=== PATIENT | male | born 1955 | race Caucasian/White ===

== ENCOUNTER 2019-05-03 08:44 | Outpatient (REF) | payer OTHER, SELFPAY ==
[2019-05-03 12:57] LABS: HCT 47.3 % (40.0-50.0); HGB 15.7 g/dL (13.5-17.5); Mean Corp. HGB Concentration 33.2 g/dL (32.0-36.0); Mean Corpuscular Hemoglobin 33.4 pg (27.0-33.0); Mean Corpuscular Volume 100.6 fL (80-95); Mean Platelet Volume 10.8 fL (8.0-11.0); Platelet Count 283 x1000/uL (130-400); RBC Distribution Width 13.3 % (11.8-14.1); White Blood Cell Count 5.44 k/cumm (4.4-10.8)
[2019-05-03 14:22] LABS: ALT 27 U/L (16-63); AST 21 U/L (15-37); Albumin 4.4 g/dL (3.4-5.0); Alkaline Phosphatase 62 U/L (46-116); Anion Gap 12.3 mmol/L (3-11); BUN 14 mg/dL (7-18); Bilirubin, Total 1.3 mg/dL (0.2-1.0); CO2 28.7 mmol/L (21.0-32.0); CREATININE 1.08 mg/dL (0.70-1.30); Calcium 9.8 mg/dL (8.5-10.1); Calculated LDL 222 mg/dL; Chloride 103 mmol/L (98-107); Cholesterol 298 mg/dL (<200); Glucose 100 mg/dL (74-106); HDL Cholesterol 54 mg/dL (40-60); Potassium 4.2 mmol/L (3.5-5.1); Sodium 144 mmol/L (136-145); Triglyceride 114 mg/dL (<150)
[2019-05-06 10:40] LABS: PSA, Screening 1.7 ng/mL (0.0-4.5)
== END 2019-05-03 09:04 ==
LOC: NCHCN 08:44
PROVIDERS: PCP Family Medicine; Visit Provider Family Medicine
DX: E78.5 Hyperlipidemia, unspecified (principal); Z12.5 Encounter for screening for malignant neoplasm of prostate
CPT/HCPCS: 80053; 80061; 84153; 85027

== ENCOUNTER 2019-10-31 09:46 | Outpatient (REF) | payer OTHER, SELFPAY ==
[2019-10-31 21:32] LABS: Calculated LDL 167 mg/dL (<100); Cholesterol 236 mg/dL (<200); Folate 17.1 ng/mL (8.6-20.0); HDL Cholesterol 49 mg/dL (40-60); Triglyceride 100 mg/dL (<150); Vitamin B12 211 pg/mL (193-986)
[2019-11-04 13:25] LABS: PSA, Screening 2.3 ng/mL (0.0-4.5)
== END 2019-10-31 10:06 ==
LOC: NCHCN 09:46
PROVIDERS: PCP Family Medicine; Visit Provider Family Medicine
DX: E78.5 Hyperlipidemia, unspecified (principal); Z12.5 Encounter for screening for malignant neoplasm of prostate
CPT/HCPCS: 80061; 84153; 82607; 82746

== ENCOUNTER 2020-02-05 09:28 | Outpatient (REF) | payer OTHER, SELFPAY ==
[2020-02-05 22:03] LABS: Calculated LDL 144 mg/dL (<100); Cholesterol 207 mg/dL (<200); HDL Cholesterol 48 mg/dL (40-60); Triglyceride 77 mg/dL (<150)
[2020-02-05 22:22] LABS: Creatine Kinase 126 U/L (39-308)
== END 2020-02-05 09:48 ==
LOC: NCHCN 09:28
PROVIDERS: PCP Family Medicine; Visit Provider Family Medicine
DX: E78.5 Hyperlipidemia, unspecified (principal)
CPT/HCPCS: 80061; 82550

== ENCOUNTER 2020-05-05 14:22 | Outpatient (REF) | payer OTHER, SELFPAY ==
[2020-05-05 13:58] LABS: Calculated LDL 136 mg/dL (<100); Cholesterol 207 mg/dL (<200); HDL Cholesterol 47 mg/dL (40-60); Triglyceride 121 mg/dL (<150)
[2020-05-05 14:20] LABS: Creatine Kinase 169 U/L (39-308)
== END 2020-05-05 14:42 ==
LOC: NCHCN 14:22
PROVIDERS: PCP Family Medicine; Visit Provider Family Medicine
DX: E78.5 Hyperlipidemia, unspecified
CPT/HCPCS: 80061; 82550

== ENCOUNTER 2020-11-12 09:54 | Outpatient (REF) | payer OTHER, SELFPAY ==
[2020-11-12 14:05] LABS: ALT 20 U/L (16-63); AST 14 U/L (15-37); Albumin 4.4 g/dL (3.4-5.0); Alkaline Phosphatase 60 U/L (46-116); Anion Gap 9.7 mmol/L (3-11); BUN 10 mg/dL (7-18); Bilirubin, Total 0.7 mg/dL (0.2-1.0); CO2 27.3 mmol/L (21.0-32.0); Calcium 9.9 mg/dL (8.5-10.1); Chloride 108 mmol/L (98-107); Glucose 109 mg/dL (74-106); Potassium 4.6 mmol/L (3.5-5.1); Sodium 145 mmol/L (136-145); Total Protein 7.7 g/dL (6.4-8.2)
[2020-11-13 22:16] LABS: Calculated LDL 187 mg/dL (<100); Cholesterol 249 mg/dL (<200); HDL Cholesterol 43 mg/dL (40-60); Triglyceride 96 mg/dL (<150)
== END 2020-11-12 09:55 | disposition home or self-care (01) ==
LOC: NCHCN 09:54
PROVIDERS: PCP Family Medicine; Visit Provider Family Medicine
DX: Z00.00 Encounter for general adult medical examination without abnormal findings (principal); E78.5 Hyperlipidemia, unspecified
CPT/HCPCS: 80053; 80061

== ENCOUNTER 2021-11-23 15:12 | Outpatient (REF) | payer MEDICARE, SELFPAY ==
[2021-11-23 15:32] LABS: ALT 20 U/L (16-63); AST 18 U/L (15-37); Albumin 4.5 g/dL (3.4-5.0); Alkaline Phosphatase 69 U/L (46-116); Anion Gap 10.5 mmol/L (3-11); BUN 15 mg/dL (7-18); Bilirubin, Total 1.3 mg/dL (0.2-1.0); CO2 26.5 mmol/L (21.0-32.0); Calcium 10.1 mg/dL (8.5-10.1); Chloride 105 mmol/L (98-107); Glucose 117 mg/dL (74-106); Potassium 4.4 mmol/L (3.5-5.1); Sodium 142 mmol/L (136-145)
[2021-11-23 18:46] LABS: Vitamin D 25 Total 45.6 ng/mL (30-100)
[2021-11-23 22:11] LABS: PSA, Screening 2.6 ng/mL (<=4.5)
== END 2021-11-23 15:13 | disposition home or self-care (01) ==
LOC: NCHCN 15:12
PROVIDERS: PCP Family Medicine; Visit Provider Family Medicine
DX: E78.5 Hyperlipidemia, unspecified (principal); Z00.00 Encounter for general adult medical examination without abnormal findings; Z12.5 Encounter for screening for malignant neoplasm of prostate
CPT/HCPCS: 80053; 82306; 84153

== ENCOUNTER → 2021-11-29 13:06 | Outpatient (CLI) | payer MEDICARE, SELFPAY ==
--- NOTE | 2021-11-29 | DI.RAD_ITS ---
Exam(s) XR HIP RT COMPLETE AP PELVIS EXAM: XR HIP RT COMPLETE AP PELVIS CLINICAL HISTORY: RIGHT HIP JOINT PAIN--M25.551 TECHNIQUE: COMPARISON: No exams were available for comparison FINDINGS: Two views were obtained. There is mild narrowing of the cartilaginous joint spaces of both hips. Sl ight subchondral sclerosis also appears to be present in the acetabula bilaterally with mild acetabul ar marginal osteophytes noted. No other bony or soft tissue abnormality seen. IMPRESSION: Mild DJD both hips. RADIATION DOSE DELIVERED: Total DLP
== END ==
PROVIDERS: PCP Family Medicine; Visit Provider Family Medicine
DX: M16.0 Bilateral primary osteoarthritis of hip (principal)
CPT/HCPCS: 73502

== ENCOUNTER 2021-12-15 09:03 | Outpatient (REF) | payer MEDICARE, SELFPAY ==
[2021-12-15 14:11] LABS: HCT 43.3 % (40.0-50.0); HGB 14.4 g/dL (13.5-17.5); MCH 32.6 pg (27.0-33.0); MCHC 33.3 % (32.0-36.0); MCV 98 fL (80-95); MPV 10.5 fL (8.0-11.0); Platelet Count 291 10^3/uL (130-400); RBC 4.42 10^6/uL (4.36-5.78); RDW 12.7 % (11.8-14.1); RDW-SD 45.7 fL; WBC 5.11 10^3/uL (4.4-10.8)
[2021-12-15 14:32] LABS: Calculated LDL 149 mg/dL (<100); Cholesterol 221 mg/dL (<200); HDL Cholesterol 43 mg/dL (40-60); TSH (W/Ref FT4) 0.62 uIU/mL (0.36-3.74); Triglyceride 147 mg/dL (<150)
[2021-12-23 16:57] LABS: Testosterone, Total 681 ng/dL (240-950)
== END 2021-12-15 09:04 | disposition home or self-care (01) ==
LOC: NCHCN 09:03
PROVIDERS: PCP Family Medicine; Visit Provider Family Medicine
DX: E78.5 Hyperlipidemia, unspecified (principal); R53.83 Other fatigue
CPT/HCPCS: 80061; 84402; 84403; 85027; 84443

== ENCOUNTER 2022-11-21 09:31 | Outpatient (CLI) | payer MEDICARE, SELFPAY ==
--- NOTE | 2022-11-21 09:15 | DI.RAD_ITS ---
Exam(s) XR KNEE LT 3V AP,LAT,JASIEL EXAM: XR KNEE LT 3V AP,LAT,JASIEL CLINICAL HISTORY: left knee pain. TECHNIQUE: 2D digital imaging was performed of the left knee. Three images were obtained. AP, late ral and PA tunnel views were obtained. COMPARISON: No exams were available for comparison FINDINGS: BONES: No acute fracture is present. No bony destructive lesion is seen. JOINTS: There is mild narrowing of the medial femoral tibial joint. No joint effusion is seen. SOFT TISSUE: Normal. IMPRESSION: Mild joint space narrowing in the medial femoral tibial joint. DATA REPOSITORY: RADIATION DOSE DELIVERED:
== END 2022-11-21 09:32 | disposition home or self-care (01) ==
LOC: DIORS 09:32
PROVIDERS: PCP Family Medicine; Referring Provider Family Medicine; Visit Provider Physician Assistant
DX: M25.562 Pain in left knee (principal); M17.12 Unilateral primary osteoarthritis, left knee
CPT/HCPCS: 20610; 73562; 99203; J1040

== ENCOUNTER 2023-01-24 16:05 | Outpatient (REF) | payer MEDICARE, SELFPAY ==
[2023-01-24 15:06] LABS: ALT 20 U/L (16-63); AST 14 U/L (15-37); Albumin 4.4 g/dL (3.4-5.0); Alkaline Phosphatase 84 U/L (46-116); Anion Gap 7.2 mmol/L (3-11); BUN 12 mg/dL (7-18); CO2 29.8 mmol/L (21.0-32.0); Calcium 9.7 mg/dL (8.5-10.1); Calculated LDL 107 mg/dL (<100); Chloride 105 mmol/L (98-107); Cholesterol 173 mg/dL (<200); Estimated GFR 83.01 (mL/min/1.73m2); Glucose 109 mg/dL (74-106); HDL Cholesterol 51 mg/dL (40-60); Potassium 4.8 mmol/L (3.5-5.1); Sodium 142 mmol/L (136-145); Total Protein 7.7 g/dL (6.4-8.2); Triglyceride 76 mg/dL (<150)
[2023-01-24 15:22] LABS: Vitamin D 25 Total 46.6 ng/mL (30-100)
[2023-01-25 09:54] LABS: PSA, Screening 2.2 ng/mL (<=4.5)
== END 2023-01-24 16:06 | disposition home or self-care (01) ==
LOC: NCHCN 16:05
PROVIDERS: PCP Family Medicine; Visit Provider Family Medicine
DX: E78.5 Hyperlipidemia, unspecified (principal); R53.83 Other fatigue; N40.0 Benign prostatic hyperplasia without lower urinary tract symptoms; Z12.5 Encounter for screening for malignant neoplasm of prostate; Z79.899 Other long term (current) drug therapy
CPT/HCPCS: 80053; 80061; 82306; 84153

== ENCOUNTER 2023-02-13 15:28 | Outpatient (CLI) | payer MEDICARE, SELFPAY ==
--- NOTE | 2023-02-13 14:30 | DI.RAD_ITS ---
Exam(s) XR HIP RT COMPLETE AP PELVIS EXAM: XR HIP RT COMPLETE AP PELVIS CLINICAL HISTORY: right hip pain. TECHNIQUE: 2D digital imaging was performed of the right hip. Two images were obtained. AP pelvis a nd lateral right hip views were obtained. COMPARISON: CR XR HIP RT COMPLETE AP PELVIS from 11/29/2021 FINDINGS: BONES: No acute fracture is present. No bony destructive lesion is seen. JOINTS: No dislocation present. In the hips there is mild joint space narrowing, left greater than ri ght. Subchondral cysts are seen bilaterally in the acetabuli. There is mild spurring of the left ac etabulum. The sacroiliac joints and symphysis pubis are unremarkable. SOFT TISSUE: Normal. IMPRESSION: Degenerative changes of the hips, left greater than right. DATA REPOSITORY: RADIATION DOSE DELIVERED:
== END 2023-02-13 15:29 | disposition home or self-care (01) ==
LOC: DIORS 15:29
PROVIDERS: PCP Family Medicine; Referring Provider Family Medicine; Visit Provider Student in an Organized Health Care Education/Training Program
DX: M25.851 Other specified joint disorders, right hip
CPT/HCPCS: 99213; 73502

== ENCOUNTER 2023-04-04 14:56 | Outpatient (CLI) | payer MEDICARE, SELFPAY ==
--- NOTE | 2023-04-04 10:09 | DI.RAD_ITS ---
Exam(s) XR SHOULDER LT COMPLETE 2+V EXAM: XR SHOULDER LT COMPLETE 2+V CLINICAL HISTORY: LEFT SHOULER PAIN. TECHNIQUE: 2D digital imaging was performed. Two views. COMPARISON: No exams were available for comparison FINDINGS: BONES: No acute fracture is present. No bony destructive lesion is seen. JOINTS: No dislocation present. No significant AC joint spurring. Mild narrowing of the glenohumera l joint. Spurring at the inferior glenoid and humeral head. SOFT TISSUE: Normal. IMPRESSION: [id number] degenerative changes of the glenohumeral joint. DATA REPOSITORY: RADIATION DOSE DELIVERED:
== END 2023-04-04 14:57 | disposition home or self-care (01) ==
LOC: DIORS 14:56
PROVIDERS: PCP Family Medicine; Referring Provider Family Medicine; Visit Provider Student in an Organized Health Care Education/Training Program
DX: M25.512 Pain in left shoulder (principal); M19.012 Primary osteoarthritis, left shoulder
CPT/HCPCS: 99213; 73030

== ENCOUNTER 2023-05-25 14:42 | Emergency (ER) | payer MEDICARE, SELFPAY ==
[2023-05-25 14:44] VITALS: BP 152/104; PULSE 93; RESP 18; TEMP 36.3; O2SAT 99
--- NOTE | 2023-05-25 14:57 | ED.GENADUL_ITS ---
HPI General Date/Time Provider Initiated Documentation: 05/25/23 14:45 . HPI Narrative: 67-year-old male history of prior allergic reaction to bee sting presents after being stung by a wasp on his left pinky finger approximately 1 hour ago, localized discomfort swelling and itchiness, took Benadryl before arrival, no nausea no vomiting no throat swelling no tongue swelling no change in speech no trouble breathing. No lightheadedness. Related Data Home Medications Medication Instructions Recorded Confirmed epinephrine 0.3 mg/0.3 mL 0.3 mg (0.3 mL) IJ STAT PRN 11/13/15 05/25/23 injection, auto-injector (EpiPen Anaphylaxis #1 unit 2-Hi) cholecalciferol (vitamin D3) 50 2,000 unit PO DAILY 05/03/17 05/25/23 mcg (2,000 unit) capsule (Vitamin D3) famotidine 10 mg tablet (Pepcid AC) 10 mg PO DAILY 05/03/17 05/25/23 vardenafil 10 mg tablet (Levitra) 10 mg PO PRN 05/03/17 05/25/23 Tumeric 1 tab PO DAILY 05/23/17 05/25/23 ibuprofen 200 mg capsule 400 mg PO PRN PRN 05/23/17 05/25/23 red yeast rice 600 mg capsule 600 mg PO DAILY 05/23/17 05/25/23 rosuvastatin 10 mg tablet 10 mg PO DAILY 04/04/23 05/25/23 Previous Rx's Medication Instructions Recorded epinephrine 0.3 mg/0.3 mL 0.3 mg (0.3 mL) IJ STAT PRN 11/13/15 injection, auto-injector (EpiPen Anaphylaxis #1 unit 2-Hi) Allergies Allergy/AdvReac Type Severity Reaction Status Date / Time bee venom protein (honey bee) Allergy Severe Anaphylaxsi Unverified 05/25/23 14:48 s General Stated Complaint: Allergic GIRMA: 3 Review of Systems Narrative: Review of Systems Constitutional: negative Eyes: negative ENT: negative Cardiovascular: negative Respiratory: negative Gastrointestinal: negative : negative Musculoskeletal: Finger pain and swelling itchiness Skin: negative Neurologic: negative Psych: negative Exam Narrative Exam Narrative: Physical Examination General: alert, awake, cooperative, resting comfortably, no acute distress HEENT: normocephalic, atraumatic; PERRL, EOM intact, conjunctiva normal; no nasal discharge; moist mucous membranes, oral and pharyngeal mucosa normal, tolerating secretions; normal voice no stridor Neck: supple, trachea midline; full ROM Chest: normal to inspection Respiratory: normal respiratory effort, speaking in full sentences, clear to auscultation, no wheezing, rales or rhonchi; normal voice no stridor Cardiac: regular rate, regular rhythm, S1S2 intact, no murmurs rubs or gallops GI: abdomen soft, non-tender, non-distended; no palpable mass or hepatosplenomegaly Skin: Induration erythema urticaria to left fifth digit of upper hand as well as dorsum of left hand Neuro: AAOx3, normal speech, moving all extremities Extremities: See skin; flexion extension of all digits intact; neurovascular exam of left upper extremity intact Psych: Appropriate mood and affect Course Vital Signs Vital signs: Vital Signs Temperature 36.3 C L 05/25/23 14:44 Pulse 93 H 05/25/23 14:44 Respiratory Rate 18 05/25/23 14:44 Blood Pressure 152/104 H 05/25/23 14:44 Pulse Oximetry 99 05/25/23 14:44 Temperature 36.3 C L 05/25/23 14:44 Pulse 93 H 05/25/23 14:44 Respiratory Rate 18 05/25/23 14:44 Respiratory Effort Non-Labored 05/25/23 14:50 Respiratory Pattern Normal 05/25/23 14:50 Blood Pressure 152/104 H 05/25/23 14:44 Blood Pressure Position Sitting 05/25/23 14:44 Pulse Oximetry 99 05/25/23 14:44 Oxygen Delivery Method Room Air 05/25/23 14:44 Oxygen Flow Rate 0 05/25/23 14:44 Medical Decision Making 67-year-old male presents 1 hour after being stung by wasp on the fifth digit of his left upper extremity, localized induration erythema and urticaria involving digit and dorsum of hand, no nausea vomiting shortness of breath facial swelling tongue swelling lightheadedness or other systemic symptoms noted. Patient resting comfortably no acute distress lungs clear bilaterally tongue secretions normal voice. Hypertension tachycardia likely related to discomfort. Patient took diphenhydramine 25 mg before arrival. Will dose dexamethasone and cetirizine p.o. Will observe for any worsening symptoms. Likely localized allergic reaction will observe for any signs of developing anaphylaxis. Likely home with close follow-up. Patient has access to EpiPen 15: 11 patient asking to leave. 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 (Acute) Mild medially 80 mg Depo-medrol: 11/21/22 Medical History (Updated 05/25/23 @ 15:13 by Toy Dias MD) Hyperlipidemia Marijuana use Erectile dysfunction Reflux esophagitis Surgical History (Updated 02/14/18 @ 14:37 by [employer] MS) Repair of inguinal hernia EGD - MAC (05/26/17) Colonoscopy - MAC (05/26/17) Social History Smoking/Tobacco Use Status: Never Smoking risk assessment performed?: Yes Drug use: Occasionally Do you feel safe at home: Yes Do you feel safe in your relationship?: Yes Discharge Plan Disposition Patient Disposition: Home Condition: Stable Discharge Details Chief Complaint: Allergic Clinical Impression: Wasp sting Primary Care Provider: Molly Soliman ED Provider: Toy Dias Home Meds and New Rx's Prescriptions: No Action rosuvastatin 10 mg tablet 10 mg PO DAILY famotidine [Pepcid AC] 10 MG tablet 10 mg PO DAILY vardenafil [Levitra] 10 MG tablet 10 mg PO PRN cholecalciferol (vitamin D3) [Vitamin D3] 2,000 UNIT capsule 2,000 unit PO DAILY epinephrine [EpiPen 2-Hi] 0.3 MG/0.3 ML auto-injector 0.3 mg IJ STAT PRN (Reason: Anaphylaxis) Qty: 1 0RF ibuprofen 200 MG capsule 400 mg PO PRN PRN red yeast rice 600 MG capsule 600 mg PO DAILY Tumeric 1 tab PO DAILY Discharge Instructions Instructions: Insect Bite or Sting (ED), Anaphylaxis (ED), General Allergic Reaction (ED) Additional Instructions: Please return to the emergency department for any worsening symptoms such as but not limited to trouble breathing trouble speaking trouble swallowing, nausea vomiting feeling lightheaded or passing out or other abnormal symptoms. Please use your EpiPen if you develop signs of severe allergic reaction/anaphylaxis.
[2023-05-25] MEDS: Cetirizine 10 MG TAB PO (15:06)
[2023-05-25] MEDS: Dexamethasone 10 MG/ML VIAL PO (15:06)
== END 2023-05-25 15:18 | disposition home or self-care (01) ==
PROVIDERS: Emergency Provider Emergency Medicine; PCP Family Medicine
DX: T63.441A Toxic effect of venom of bees, accidental (unintentional), initial encounter (principal); Y92.89 Other specified places as the place of occurrence of the external cause
CPT/HCPCS: 99283; J1100

== ENCOUNTER → 2023-07-21 10:28 | Outpatient (BNVA) | payer MEDICARE, SELFPAY | PROVIDERS: PCP Family Medicine; Referring Provider Family Medicine | DX: M17.12 Unilateral primary osteoarthritis, left knee (principal) | CPT/HCPCS: 20610; J1040 ==

== ENCOUNTER → 2023-10-24 10:08 | Outpatient (BNVA) | payer MEDICARE, SELFPAY | PROVIDERS: PCP Family Medicine; Referring Provider Family Medicine; Visit Provider Surgery | DX: K46.9 Unspecified abdominal hernia without obstruction or gangrene (principal) | CPT/HCPCS: 99213 ==

== ENCOUNTER 2023-11-01 06:23 | Day surgery (SDC) | payer MEDICARE, SELFPAY ==
--- NOTE | 2023-10-31 14:21 | W.PM.DSUDISC ---
Date of service: 11/01/23 Time of Service: 08:26 Discharge Plan Disposition Patient Disposition: Home Condition: Good Discharge Details Reason For Visit: Right inguinal hernia repair with mesh Attending Provider: Kris Arreola Primary Care Provider: Molly Soliman Home Meds and New Rx's Prescriptions: New tramadol 50 mg tablet 50 mg PO Q8H PRNQty: 15 0RF Rx Instructions: Take 1 tablet by mouth if needed for more severe pain. Do not drive while using this medication. Tablets can be broken in half for smaller doses if needed. Continued famotidine [Pepcid AC] 10 MG tablet 10 mg PO DAILY vardenafil [Levitra] 10 MG tablet 10 mg PO PRN cholecalciferol (vitamin D3) [Vitamin D3] 2,000 UNIT capsule 2,000 unit PO DAILY epinephrine [EpiPen 2-Hi] 0.3 MG/0.3 ML auto-injector 0.3 mg IJ STAT PRN (Reason: Anaphylaxis) Qty: 1 0RF ibuprofen 200 MG capsule 400 mg PO PRN PRN red yeast rice 600 MG capsule 600 mg PO DAILY Discharge Instructions Instructions: Groin Hernia Repair, Open Surgery Additional Instructions: Sameer, we were able to repair your hernia today just like we talked about in the office. Everything went very smoothly, and hopefully this will give you good protection for many years to come. As we talked about beforehand, expect to have some pain in the area after surgery. I did prescribe medication called tramadol, which you should use if needed in combination with Tylenol and ibuprofen. Ice packs over the area are often times quite helpful as well. Will probably get quite a bit of bruising in the area, which is generally nothing to worry about. So do not be alarmed if you notice that. Keep your lifting less than 10 pounds for the next week or 2, we will see how you are feeling in the office before we decide on resuming her regular activities. If he notices skin turning red, increasing pain, or any thick and white discharge from the incision, please let me know. Otherwise, I look forward to seeing you in the office. If you have any questions at all do not hesitate to call. 1. Resume all of your regular medications. 2. Alternate heating pads and ice packs as needed for pain. 3. Alternate [id number] Tylenol and ibuprofen every 6 hours for the first 2 days. Then use as needed. Use the prescription for tramadol if needed for more severe pain. 4. Leave bandage in place for 24 hours, then remove. 5. Shower with warm soapy water. Pat dry. Use a bandaid if needed to protect your clothing. 6. No soaking or tub baths until I see you in the office. 7. No heavy lifting until I see you in the office. 8. Call the office (or go directly to the emergency room after hours) if you notice any of the following: Develop chills (warm to touch), or if you have a thermometer and your temperature is above 101 Difficulty breathing or difficultly swallowing Persistent vomiting Any bleeding ? exceeding one tablespoon 9. Call your physician if the site where your intravenous was started becomes red, swollen, painful, and warm to touch. Referrals: Kris Arreola MD [ [facility] STAFF PHYSICIAN] - Activity:: No heavy lifting Remove Dressings/Wound Care:: 24 hours Shower/Bathe:: 24 hours Diet:: As Tolerated Discharge Orders Discharge Orders: Discharge Order (Routine); Ordered 10/31/23 Ordered By: Kris Arreola DS: Diagnosis Discharge Diagnosis (1) Right inguinal hernia: Status: Acute Asessment and Plan: Status post right open inguinal hernia repair with mesh. Routine postoperative follow-up
--- NOTE | 2023-10-31 14:23 | ROE_ITS ---
Date of service: 11/01/23 Time of Service: 08:29 Operative Note Operative Note DATE OF PROCEDURE: 10/31/23 PRE-OP DIAGNOSIS: Right inguinal hernia POST-OP DIAGNOSIS: other (Right-sided direct inguinal hernia) PROCEDURE: Open right inguinal hernia repair with mesh SURGEON: Kris Arreola [employer] WORK[employer]: Nakia Velazquez ANESTHESIA TYPE: Local By Surgeon and General LMA/ETT Refer to Anesthesia Record ESTIMATED BLOOD LOSS: 10 PATHOLOGY: none sent COMPLICATIONS: None Patient was transported to: PACU Patient's condition: stable Implants: Bard mesh Indications: Sameer is a 68-year-old male with a symptomatic right-sided hernia Findings: Right-sided direct inguinal hernia Procedure Description: I began by confirming the correct site with the patient. He was then brought to the OR, moved onto the operating room table. General endotracheal anesthesia was induced. The surgical site was then prepped and draped in the usual fashion. I established a generous field block using local anesthetic with Exparel. I began by making an oblique incision over the right inguinal region. I dissected down through the skin to the deep fascia. Next, I incised the fascia along the length of the inguinal canal to the external ring. I then carefully identified the ilioinguinal nerve and sharply divided. Once this was complete, I bluntly dissected the shelving edge of the inguinal ligament down towards the pubic tubercle. Here, I encircled all cord structures with a [place] drain. Next, I began dissecting the specific cord structures. Great care was taken to spare the vas deferens and the blood supply to the testicle. I gently dissected the cord structures, and elevated them off of the posterior wall. It was immediately evident that this was a direct inguinal hernia. The cord was carefully examined back to its origin at the internal ring. There was no sign of any indirect inguinal hernia. Next, I tailored a large Bard mesh to reconstruct the posterior wall of the inguinal canal. It was affixed to the pubic tubercle, and the conjoined tendon. Running Prolene suture was used to attach it up along the conjoined tendon and around to the internal oblique aponeurosis. A keyhole defect was created in the mesh to support the [place] internal ring. The inferior margin was then secured along the shelving edge of the inguinal ligament back to the lateral reflection. The tails of the mesh were affixed lateral to the internal ring. The cord was then laid back down into its normal anatomic position. The field was hemostatic. I then closed the anterior portion of the fascia to reconstruct the front wall of the inguinal canal with running Vicryl suture. More local anesthetic was administered. Once again, I irrigated the surgical field and inspected for hemostasis. Finally, I approximated the superficial fascia and the deep layers of the skin with absorbable suture. Skin was closed with running subcuticular stitches. bandages were applied, the patient was awakened and transferred to the recovery unit.
--- NOTE | 2023-10-31 19:09 | W.ANESPRE ---
General Info Date of Service Date Performed: 11/01/23 Height: 5 ft 8 in Weight: 75 kg Body Mass Index (BMI): 25.1 Surgical Procedure: Operation Date: 11/01/23 07:40 Proposed Procedure Side Surgeon p Herniorrhaphy Inguinal w/Mesh Right Kris Arreola MD Meds Allergies and Home Medications Allergies Allergy/AdvReac Type Severity Reaction Status Date / Time bee venom protein (honey bee) Allergy Severe Anaphylaxsi Unverified 11/01/23 06:27 s Home Medication Medication Instructions Recorded epinephrine 0.3 mg/0.3 mL 0.3 mg (0.3 mL) IJ STAT PRN 11/13/15 injection, auto-injector (EpiPen Anaphylaxis #1 unit 2-Hi) cholecalciferol (vitamin D3) 50 2,000 unit PO DAILY 05/03/17 mcg (2,000 unit) capsule (Vitamin D3) famotidine 10 mg tablet (Pepcid AC) 10 mg PO DAILY 05/03/17 vardenafil 10 mg tablet (Levitra) 10 mg PO PRN 05/03/17 ibuprofen 200 mg capsule 400 mg PO PRN PRN 05/23/17 red yeast rice 600 mg capsule 600 mg PO DAILY 05/23/17 Current Visit Medications: Current Medications Generic Name Dose Route Start Last Admin Trade Name Freq PRN Reason Stop Dose Admin Acetaminophen 1,000 mg 11/01/23 06:00 Acetaminophen 500 Mg Tab PO 11/01/23 16:00 PREOP JOHN Celecoxib 200 mg 11/01/23 06:00 Celecoxib 200 Mg Cap PO 11/01/23 16:00 PREOP JOHN Gabapentin 600 mg 11/01/23 06:00 Gabapentin 300 Mg Cap PO 11/01/23 16:00 PREOP JOHN Ringer's Solution 1,000 mls @ 80 mls/hr 11/01/23 06:00 IV 11/30/23 23:59 INFUSION JOHN Cefazolin Sodium/Dextrose 2 gm in 50 mls @ 100 mls/hr 11/01/23 06:00 Ancef Duplex IVPB 11/01/23 16:00 PREOP JOHN IV Miscellaneous Supplies 1 each 11/01/23 06:00 Iv Access IV 11/30/23 23:59 DIRECTED JOHN Sodium Chloride 0 ml 11/01/23 06:00 Normal Saline Flush 10 Ml Syr IV 11/30/23 23:59 PRN PRN Sodium Chloride 0 ml 11/01/23 06:00 Normal Saline 10 Ml Vial IJ 11/30/23 23:59 DIRECTED PRN Sterile Water 0 ml 11/01/23 06:00 Water,Injection,Sterile 10 Ml Vial IJ 11/30/23 23:59 DIRECTED PRN Tramadol HCl 50 mg 10/31/23 14:25 Tramadol 50 Mg Tab PO 11/30/23 14:24 Q6H PRN PRN Pain PFSH Active Problems Active Problems: Problem Status Onset Code Right inguinal hernia K40.90 Arthritis of left glenohumeral joint M19.012 Femoroacetabular impingement of right hip M25.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 M17.12 Medical History Medical History BPH (benign prostatic hyperplasia) Hyperlipidemia Marijuana use Erectile dysfunction Reflux esophagitis Surgical History Surgical History Repair of inguinal hernia variceal repair EGD - MAC (05/26/17) Colonoscopy - MAC (05/26/17) Tobacco Smoking/Tobacco Use Status: Never Alcohol Alcohol Intake: never Substance Use Substance use: Occasionally Substance use type: marijuana Vital Signs and Lab Results Vital Signs Most Recent Vital Signs in EMR: Temp Pulse Resp BP Pulse Ox 36.5 C 73 18 117/67 100 11/01/23 06:39 11/01/23 06:39 11/01/23 06:39 11/01/23 06:39 11/01/23 06:39 Lab Results Blood Type / Crossmatch: No Data to Display Complete Blood Count: No Data to Display Complete Metabolic Panel: No Data to Display Liver Function Panel: No Data to Display Coagulation Panel: No Data to Display Cardiac Panel: No Data to Display Arterial Blood Gas: No Data to Display Venous Blood Gas: No Data to Display Pancreas Panel: No Data to Display Thyroid Panel: No Data to Display Infectious Disease: No Data to Display Blood Cultures: No Data to Display Toxicology Panel: No Data to Display Anesthesia Assessment and Plan Anesthesia History Personal History: No History of Anesthesia Complications Family History: No Family History of Anesthesia Complications Exercise Tolerance Exercise Tolerance: Metabolic Equivalents>4 Cardiac & Pulmonary Exam Cardiac Exam: Normal S1/S2 Heart Sounds Pulmonary Exam: Clear Bilateral Breath Sounds Implantable Cardiac Device Does patient have a Pacemaker or an ICD?: No Airway Exam Known Difficult Airway: No Mallampati Class: 3 Mouth Opening: Normal (> 3cm) Thyromental Distance: Greater than 3 cm Neck Range of Motion: Full ROM Neck Circumference: Normal Teeth Condition: Normal Dentition ASA Classification ASA Score: ASA 2 Emergency Case?: No NPO Status NPO Status: NPO Clears >2 hours, Solids >8 hours Anesthesia Plan Resuscitation Status: Full Code Anesthesia Technique: General Anesthesia Airway Planned: LMA Pain Management: Surgeon and patient request nerve block Monitors Used: Standard Monitors Preoperative Comments:: 68 yo male for inguinal hernia repair. Sig PMHx: GERD (well controlled on Pepcid), BPH, never smoker, occ cannabis. discussed risks and benefits of regional anesthesia, he would like to no have a block.
[2023-11-01] VITALS (23 sets, daily range): BP systolic 86–123; BP diastolic 49–67; PULSE 57–73; RESP 14–19; TEMP 36–36.5; O2SAT 96–100; BMI 25.1
[2023-11-01] MEDS: Gabapentin 300 MG CAP 600 MG PO (06:44)
[2023-11-01] MEDS: Acetaminophen 500 MG TAB 1000 MG PO (06:44)
[2023-11-01] MEDS: Celecoxib 200 MG CAP PO (06:44)
[2023-11-01] MEDS: Lactated Ringers 1,000 ML 80 ML IV (07:06)
[2023-11-01] MEDS: ceFAZolin 2 GM/50 ML BAG IVPB (07:30)
[2023-11-01] MEDS: Bupivacaine LIPOSOME/PF 133 MG/10 ML VIAL IJ (07:56)
[2023-11-01] MEDS: Bupivacaine 0.5% Pres-Free W/EPI 30 ML VIAL (07:56)
--- NOTE | 2023-11-01 08:59 | W.ANESPOSTOP ---
Postoperative Evaluation Date, Time and Location Date Performed: 11/01/23 Time Performed: 08:59 Patient Location: PACU Vital Signs Most Recent Imported Vital Signs: Most Recent Vital Signs Temp Pulse Resp BP Pulse Ox 36.4 C L 65 15 100/54 L 97 11/01/23 08:49 11/01/23 08:46 11/01/23 08:46 11/01/23 08:46 11/01/23 08:46 Pain Score Most Recent Pain Score: Most Recent Pain Score Pain Level 0 11/01/23 08:49 Assessment Mental Status: Awake (Alert & Oriented to Patient Baseline) Airway and Respiratory Function: Patent airway with normal (patient baseline) respiratory exam Cardiovascular Function: Hemodynamically Stable Hydration Status: Adequately Hydrated Nausea & Vomiting: No Nausea or Vomiting Pain: Pain is tolerable per patient Peripheral Nerve Block: Patient did not receive a nerve block
[2023-11-01] MEDS: fentaNYL 100 MCG/2 ML VIAL IVP (09:09)
[2023-11-01] MEDS: HYDROcodone 10/Acetaminophen 325 TAB PO (10:23)
== END 2023-11-01 10:50 | disposition home or self-care (01) ==
LOC: SUR 06:23
PROVIDERS: PCP Family Medicine; Visit Provider Surgery
PROC: (CPT 49505; principal; 2023-11-01 07:30)
DX: K40.90 Unilateral inguinal hernia, without obstruction or gangrene, not specified as recurrent (principal); K21.9 Gastro-esophageal reflux disease without esophagitis
CPT/HCPCS: 49505; C1781; C9290; J0171; J0665; J0690; J1100; J1885; J2405; J2704; J3010; J3490

== ENCOUNTER → 2023-11-14 08:42 | Outpatient (BNVA) | payer MEDICARE, SELFPAY | PROVIDERS: PCP Family Medicine; Referring Provider Family Medicine; Visit Provider Surgery | DX: Z48.817 Encounter for surgical aftercare following surgery on the skin and subcutaneous tissue (principal) ==

== ENCOUNTER 2024-12-02 12:40 | Emergency (ER) | payer MEDICARE, SELFPAY ==
[2024-12-02] VITALS (63 sets, daily range): BP systolic 65–153; BP diastolic 31–83; PULSE 40–90; RESP 11–31; TEMP 36.6; O2SAT 94–98
--- NOTE | 2024-12-02 13:03 | W.ED.GENAD ---
Discharge Plan Disposition Patient Disposition: Home Condition: Stable Discharge Details Clinical Impression: Anaphylactic reaction to bee sting Primary Care Provider: Molly Soliman ED Provider: Belle Hancock Home Meds and New Rx's Prescriptions: New prednisone 50 mg tablet 50 mg PO DAILY Qty: 5 0RF famotidine [Pepcid] 40 mg tablet 40 mg PO DAILY Qty: 5 0RF No Action famotidine [Pepcid AC] 10 MG tablet 10 mg PO DAILY vardenafil [Levitra] 10 MG tablet 10 mg PO PRN cholecalciferol (vitamin D3) [Vitamin D3] 2,000 UNIT capsule 2,000 unit PO DAILY epinephrine [EpiPen 2-Hi] 0.3 MG/0.3 ML auto-injector 0.3 mg IJ STAT PRN (Reason: Anaphylaxis) Qty: 1 0RF hydrocodone-acetaminophen 10-325 mg tablet 1 tab PO BID PRNQty: 12 0RF ibuprofen 200 MG capsule 400 mg PO PRN PRN red yeast rice 600 MG capsule 600 mg PO DAILY Discharge Instructions Instructions: How to use an epinephrine autoinjector, Insect Bites and Stings ED, Anaphylaxis - Discharge instructions Additional Instructions: Continue taking Benadryl, Pepcid, and steroid for the next 5 days. If you have any symptoms that return involving tongue swelling, throat closing up, change in your voice please take the epinephrine and come back to the emergency department. Discharge Data Discharge Physician: Belle Hancock [facility] General Date/Time Provider Initiated Documentation: 12/02/24 12:59. HPI Narrative: 69-year-old male presents for evaluation after bee sting. 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 He does carry an EpiPen however he did not take it. Around noon he was stung multiple times in his left forearm. He had significant erythema to the area. He diddevelop hives and itching. He had some swelling of his upper lip. No tongue swelling or difficulty breathing. He took 25 mg of Benadryl prior to arrival. At time my evaluation his lip swelling has improved. No tongue swelling. No difficulty breathing. No tight throat. He is not feeling very itchy anymore. He does have significant swelling to his left forearm still. Related Data Home Medications ?Medication ?Instructions ?Recorded ?Confirmed epinephrine 0.3 mg/0.3 mL 0.3 mg (0.3 mL) IJ STAT PRN 11/13/15 12/02/24 injection, auto-injector (EpiPen Anaphylaxis #1 unit 2-Hi) cholecalciferol (vitamin D3) 50 2,000 unit PO DAILY 05/03/17 12/02/24 mcg (2,000 unit) capsule (Vitamin D3) famotidine 10 mg tablet (Pepcid AC) 10 mg PO DAILY 05/03/17 12/02/24 vardenafil 10 mg tablet (Levitra) 10 mg PO PRN 05/03/17 12/02/24 ibuprofen 200 mg capsule 400 mg PO PRN PRN 05/23/17 12/02/24 red yeast rice 600 mg capsule 600 mg PO DAILY 05/23/17 12/02/24 hydrocodone 10 mg-acetaminophen 1 tab PO BID PRN #12 tabs 11/01/23 12/02/24 325 mg tablet famotidine 40 mg tablet (Pepcid) 40 mg PO DAILY #5 tabs 12/02/24 prednisone 50 mg tablet 50 mg PO DAILY #5 tabs 12/02/24 Previous Rx's ?Medication ?Instructions ?Recorded epinephrine 0.3 mg/0.3 mL 0.3 mg (0.3 mL) IJ STAT PRN 11/13/15 injection, auto-injector (EpiPen Anaphylaxis #1 unit 2-Hi) hydrocodone 10 mg-acetaminophen 1 tab PO BID PRN #12 tabs 11/01/23 325 mg tablet famotidine 40 mg tablet (Pepcid) 40 mg PO DAILY #5 tabs 12/02/24 prednisone 50 mg tablet 50 mg PO DAILY #5 tabs 12/02/24 Allergies Allergy/AdvReac Type Severity Reaction Status Date / Time bee venom protein (honey bee) Allergy Severe Anaphylaxsi Unverified 11/14/23 08:47 s General Stated Complaint: Allergic GIRMA: 2 Review of Systems Narrative: Remainder of review of systems otherwise negative except for as noted in the HPI x 10. Exam Narrative Exam Narrative: General: non-toxic, no respiratory distress, comfortable HEENT: normocephalic, atraumatic, lids and lashes normal, PERRL, EOMI, anicteric sclera, no conjunctival injection, mild swelling left lateral upper lip, moist oral mucosa, no pharyngeal exudate, uvula midline Card: regular rate and rhythm, S1S2, no murmurs, rubs, or gallops Lungs: good air entry, clear to auscultation bilaterally. no wheezes, rales, rhonchi, or retractions Abd: soft, non-tender, non-distended, normal bowel sounds, no rebound or guarding, no peritoneal signs Musculoskeletal: Erythema and swelling to left forearm with 2 visible bite starr, full range of motion of arms and legs, no tenderness to palpation. no clubbing, cyanosis, or edema Neurologic: appropriate for age, strength normal Psych: alert and oriented Skin: Diffuse hives, as above, otherwise no petechiae, no lesions, warm and dry Course Reevaluation(s) Reevaluation: 1340. Patient was reassessed. He feels better however on exam he does have swelling of his tongue and he does feel like it is a little bit harder to swallow. He will be given epinephrine. Reevaluation #2: 1400 -tongue swelling improving Additional Reevaluation(s): 1530-patient continues to improve. Vital Signs Vital signs: Vital Signs Temperature 36.6 C 12/02/24 12:45 Pulse 90 12/02/24 12:45 Respiratory Rate 16 12/02/24 12:45 Blood Pressure 153/75 H 12/02/24 12:45 Pulse Oximetry 95 12/02/24 12:45 Temperature 36.6 C 12/02/24 12:45 Temperature Source Oral 12/02/24 12:45 Pulse 90 12/02/24 12:45 Respiratory Rate 16 12/02/24 12:45 Blood Pressure 153/75 H 12/02/24 12:45 Pulse Oximetry 95 12/02/24 12:45 Oxygen Delivery Method Room Air 12/02/24 12:45 Oxygen Flow Rate 0 12/02/24 12:45 Pain Level 0 12/02/24 12:45 Medical Decision Making 69-year-old male presents for evaluation after bee stings. Patient did take Benadryl prior to arrival with improvement of symptoms. Will hold on epinephrine at this time. Patient will be treated with IV Benadryl, IV Pepcid and IV steroid. At time of my first reassessment patient had tongue swelling and some slight change in speech. Subcu epinephrine was given. On reassessment patient's symptoms improved. He continued to be improved. He was monitored for 3 hours post epinephrine administration with no return of symptoms. Patient discharged home and will continue of Prednisone, Pepcid, and Benadryl for the next 5 days. He does have an EpiPen with him. He understands the importance of using it if needed. 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
[2024-12-02] MEDS: diphenhydrAMINE 50 MG/ML VIAL 25 MG IVP (13:10)
[2024-12-02] MEDS: methylPREDNISolone SUCC 125 MG VIAL IVP (13:12)
[2024-12-02] MEDS: Famotidine 20 MG/2 ML VIAL IVP (13:14)
[2024-12-02] MEDS: EPINEPHrine 0.3 MG KIT IM (13:40)
== END 2024-12-02 17:27 | disposition home or self-care (01) ==
PROVIDERS: Emergency Provider Emergency Medicine Emergency Medical Services; PCP Family Medicine
DX: T63.441A Toxic effect of venom of bees, accidental (unintentional), initial encounter (principal); R22.32 Localized swelling, mass and lump, left upper limb; L50.0 Allergic urticaria; R22.0 Localized swelling, mass and lump, head
CPT/HCPCS: 99284 ×2; 96374; 96375; J0165; J1200; J2919

== ENCOUNTER 2025-04-01 11:41 | Outpatient (REF) | payer MEDICARE, SELFPAY ==
[2025-04-01 16:25] LABS: ALT 10 U/L (10-49); AST 15 U/L (<34); Albumin 4.5 g/dL (3.2-5.0); Alkaline Phosphatase 71 U/L (46-116); Anion Gap 5.3 mmol/L (3-11); BUN 15 mg/dL (9-23); Bilirubin, Total 0.90 mg/dL (0.2-1.2); CO2 30.7 mmol/L (20.0-31.0); Calcium 9.5 mg/dL (8.3-10.6); Chloride 106 mmol/L (98-107); Cholesterol 195 mg/dL (<200); Glucose 96 mg/dL (74-106); HDL Cholesterol 52 mg/dL (>40); Potassium 4.7 mmol/L (3.5-5.1); Sodium 142 mmol/L (136-145); Total Protein 6.9 g/dL (5.7-8.2)
== END 2025-04-01 11:42 | disposition home or self-care (01) ==
LOC: NCHCN 11:41
PROVIDERS: PCP Family Medicine; Visit Provider Family Medicine
DX: E78.5 Hyperlipidemia, unspecified (principal); Z00.00 Encounter for general adult medical examination without abnormal findings
CPT/HCPCS: 80053; 80061